=== PATIENT | male | born 1985 ===

== ENCOUNTER 2023-04-22 03:25 | Emergency (ER) | payer OTHER, SELFPAY ==
[2023-04-22 03:47] VITALS: BP 138/83; PULSE 89; RESP 16; TEMP 36.8; O2SAT 95; BMI 36.1
--- NOTE | 2023-04-22 04:20 | ED.GENADULT ---
HPI - General Adult General Chief complaint: General Medical Stated complaint: Congested Time Seen by Provider: 04/22/23 04:01 Source: patient Mode of arrival: ambulatory Limitations: no limitations History of Present Illness HPI narrative: Patient presents with approximately 1-2 weeks of congestion. He has rhinorrhea. No cough or mucus production. No fevers or chills. He believes he has seasonal allergies. There is no clear relieving or exacerbating features. The symptoms are fairly constant. There has been no prior treatment Related Data Previous Rx's Medication Instructions Recorded cetirizine 10 mg tablet (Zyrtec) 10 mg PO DAILY PRN allergy 04/22/23 symptoms #20 tabs fluticasone propionate 50 1 spray intranasal BID #16 grams 04/22/23 mcg/actuation nasal spray,suspension Allergies Allergy/AdvReac Type Severity Reaction Status Date / Time No Known Allergies Allergy Verified 04/22/23 03:54 Review of Systems Review of Systems: CONSTITUTIONAL: Denies weight loss, fever and chills. HEENT: Denies changes in vision and hearing. RESPIRATORY: Denies SOB and cough. CV: Denies palpitations no CP. GI: Denies abdominal pain, nausea, vomiting and diarrhea. : Denies dysuria and urinary frequency. MSK: Denies myalgia and joint pain. SKIN: Denies rash and pruritus. NEUROLOGICAL: Denies headache and syncope. PSYCHIATRIC: Denies recent changes in mood. Denies anxiety and depression. All other ROS are negative unless in HPI Physical Exam ED Vital Signs: Vital Signs - 24 hr 04/22/23 03:47 Temperature 98.2 F Pulse Rate 89 Respiratory Rate 16 Blood Pressure 138/83 Pulse Oximetry 95 Oxygen Delivery Method Room Air BMI result Body Mass Index 36.1 GEN: Well developed, no acute distress, alert, oriented HEENT: Normocephalic, atraumatic, normal external ears, nose appears normal, no oropharyngeal edema or exudates Eyes: Normal to appearance Neck: Supple, no lymphadenopathy Respiratory: Talks in complete sentences, no respiratory distress, clear to auscultation bilaterally Cardiovascular: Regular rate and rhythm, no murmurs rubs or gallops Abdomen: Soft, nontender, nondistended, no guarding, no rebound Back: No CVA tenderness Extremities: No clubbing cyanosis or edema Neurologic: No focal neurologic deficits, cranial nerves 2-12 intact, strength is 5/5 bilaterally Skin: No rash Course Course Course Narrative: Patient likely has seasonal allergies. Patient will take oral antihistamines and nasal steroids. Will follow up with his primary care provider as needed. Medical Decision Making Medical Decision Making [facility] Narrative: Patient presents with rhinorrhea, nasal congestion. Examination is unremarkable. Patient likely has seasonal allergies. Other differential diagnosis could not viral respiratory infection. Lungs are clear to auscultation, no evidence of bronchitis or pneumonia. I will recommend to the patient that he start oral antihistamines and nasal steroids. Will follow up with primary care provider as needed. Differential Diagnosis Differential Diagnoses: The differential diagnosis associated with the presentation includes (See above) Tests considered The following testing was considered but not selected: Chest x-ray Prescription Management I considered prescription management with: Other (Antihistamines) Discharge Plan Discharge Clinical Impression: Seasonal allergic rhinitis Patient Disposition: Home, Self-Care Instructions: Allergic Rhinitis (ED), How to Use Nasal [place] (ED) Prescriptions: New cetirizine [Zyrtec] 10 mg tablet 10 mg PO DAILY PRN (Reason: allergy symptoms) Qty: 20 0RF fluticasone propionate 50 mcg/actuation spray,suspension 1 spray intranasal BID Qty: 16 0RF Rx Instructions: administer into each nostril Referrals: [facility] [Provider Group]
== END 2023-04-22 05:21 | disposition home or self-care (01) ==
PROVIDERS: Emergency Provider Emergency Medicine; PCP Hospitalist
DX: J30.2 Other seasonal allergic rhinitis (principal); J34.89 Other specified disorders of nose and nasal sinuses
CPT/HCPCS: 99282; 99283